=== PATIENT | male | born 1935 | race Caucasian/White ===

== ENCOUNTER → 2016-11-25 | Outpatient (CLI) | payer MEDICARE ==
[~2016-11-25] MED LIST: AC325T PO; ACET650S15 RC; ASCO10006 PO; ASCO500T20 PO; CALC-140 PO; CYAN10007 PO; DIGO125T PO; DILT360C26 PO; DILT90TA PO; FERR-74 PO; MULT-35 PO; OMEP20TA PO; POTA10CA43 PO; PRV20T PO; TRM50T PO; WARF1TAB PO; WARF2TAB PO; WARF5TAB PO
--- NOTE | 2016-11-25 10:43 | Diagnostic Imaging Report ---
PROCEDURE: CT chest pelvis with and abdomen with and without contrast. TECHNIQUE: Multiple contiguous axial images were obtained through the chest, abdomen and pelvis after uneventful bolus administration of intravenous contrast. Precontrast acquisitions were acquired through the abdomen. INDICATION: Colon cancer surveillance imaging. COMPARISON: CT chest, abdomen and pelvis from 11/07/2015. CTA abdomen and pelvis from 12/17/2015. CT CHEST FINDINGS: Stable hypodense nodule in the right thyroid lobe measuring less than 1 cm. No supraclavicular or axillary lymphadenopathy. No mediastinal, hilar or juxtaphrenic lymphadenopathy. Stable moderate-sized hiatus hernia. Stable marked cardiomegaly with coronary artery calcifications and/or stents. Aneurysmal dilatation of the ascending aorta measures up to 5.8 cm, similar to prior CTA of 12/16/2016. 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 No pleural effusion or pneumothorax. No significant pleural nodularity. No endoluminal lesion in the trachea or central bronchi. No pulmonary mass or consolidation. No new suspicious pulmonary nodules to suggest metastatic disease. Stable 5 mm nodule in the right upper lobe. Additional triangular 5 mm nodule in the right lower lobe is unchanged. Subpleural fine reticular opacities throughout all five lobes are not significantly changed. No focal osseous lesion to suggest skeletal metastasis. IMPRESSION: 1. No evidence of disease progression in the chest. There are two stable 5 mm pulmonary nodules in the right lung, which are likely of no clinical significance given long-term stability. 2. Marked cardiomegaly with ascending aortic aneurysm measuring up to 5.9 cm. This is similar in appearance to CTA chest of 12/17/2015. 3. Stable large hiatus hernia. CT ABDOMEN AND PELVIS FINDINGS: Numerous nonenhancing hypodensities throughout the left hepatic lobe are unchanged and most compatible with cysts. No new concerning hepatic lesion. Stable cholelithiasis. No gallbladder wall thickening or pericholecystic fluid. No biliary duct dilatation. The spleen, pancreas and adrenals are normal. No suspicious renal mass. No obstructive uropathy. Urinary bladder is normal. Prostate is unchanged. Colonic diverticulosis without diverticulitis. No bowel obstruction. Tortuous and minimally aneurysmal infrarenal abdominal aorta measuring up to 3.3 cm is unchanged. No abdominal or pelvic lymphadenopathy. No concerning focal osseous lesions in the abdomen or pelvis. IMPRESSION: 1. Stable CT abdomen and pelvis without evidence of disease recurrence or progression. 2. Unchanged fusiform aneurysm of the infrarenal abdominal aorta measuring up to 3.3 cm. Dictated by: Dictated on workstation # [id number]
== END ==
LOC: RAD 08:39
PROVIDERS: ATTEND Internal Medicine Hematology & Oncology
DX: C18.2 Malignant neoplasm of ascending colon (principal); I51.7 Cardiomegaly; I71.2 Thoracic aortic aneurysm, without rupture; R91.1 Solitary pulmonary nodule
CPT/HCPCS: 71260; 74178; Q9967